=== PATIENT | male | born 1995 | race African-American/Black ===

== ENCOUNTER 2025-02-01 18:35 | Emergency (ER) | payer SELFPAY ==
[~2025-02-01] VITALS: Ht 188 cm; Wt 104.0 kg
[2025-02-01 18:55] VITALS: O2SAT 100
[2025-02-01] MEDS ORDERED: IBUPROFEN 800MG TABLET PO ONE (19:00)
[2025-02-01] MEDS ORDERED: ACETAMINOPHEN 325MG TABLET PO ONE (19:00)
[2025-02-01] MEDS ORDERED: LIDOCAINE HCL/EPINEPHRINE 1%-EPI 1:100,000 20ML VIAL INFIL ONE (19:00)
[2025-02-01] MEDS: IBUPROFEN 800MG TABLET PO NR (20:43)
[2025-02-01] MEDS: ACETAMINOPHEN 325MG TABLET PO NR (20:43)
[2025-02-01] MEDS ORDERED: TOPUD MT (20:45)
[2025-02-01] MEDS ORDERED: IBUP-1525 MT (20:45)
[2025-02-01] MEDS: LIDOCAINE HCL/EPINEPHRINE 1%-EPI 1:100,000 20ML VIAL INFIL NR (20:45)
[2025-02-01 21:09] VITALS: BP 130/79; PULSE 63; RESP 16; TEMP 36.9; O2SAT 99
== END 2025-02-01 21:02 | disposition home or self-care (01) ==
LOC: ER 18:35
DX: S21.112A Laceration without foreign body of left front wall of thorax without penetration into thoracic cavity, initial encounter (principal); S61.210A Laceration without foreign body of right index finger without damage to nail, initial encounter; Z79.899 Other long term (current) drug therapy; Z79.1 Long term (current) use of non-steroidal anti-inflammatories (NSAID); X58.XXXA Exposure to other specified factors, initial encounter; Y93.39 Activity, other involving climbing, rappelling and jumping off; Y92.89 Other specified places as the place of occurrence of the external cause; Y99.8 Other external cause status
CPT/HCPCS: 71045; 12005; 99283; Z7610 ×2; J2004